=== PATIENT | female | born 1960 | race African-American/Black ===

== ENCOUNTER → 2016-09-02 | Outpatient (CLI) | payer BC | LOC: OD 15:01 | PROVIDERS: ATTEND Physician Assistant | DX: R05 Cough (principal) | CPT/HCPCS: 71020 ==

== ENCOUNTER 2018-03-12 13:34 | Emergency (ER) | payer MEDICARE, OTHER ==
[2018-03-12] MEDS ORDERED: DEXAMETHASONE 4 MG TABLET PO ONE (14:35)
[2018-03-12] MEDS ORDERED: KETOROLAC TROMETHAMINE 60 MG/2 ML SDV IM ONE (14:35)
--- NOTE | 2018-03-12 14:37 | ER Document Report ---
ED Neck/Back Problem - General Chief Complaint: Low Back Pain Stated Complaint: BACK AND KNEE PAIN Time Seen by Provider: 03/12/18 14:18 Mode of Arrival: Ambulatory Information source: Patient Notes: 57-year-old female was in the ED for complaint of low back pain since Monday. She states she also has left knee and thigh pain without any improvement. She states she has been taken ibuprofen that is not helping. She denies any injuries. She states that she has a history of back pain and has been using Aspercreme Biofreeze Tylenol and Aleve with no improvement. She is alert and oriented respirations regular and unlabored speaking in full sentences. Patient is able to ambulate with a even gait. She states she has had a history of a herniated disc in 1999. She states she has been to her primary care doctor up [place]. TRAVEL OUTSIDE OF THE [place] IN LAST 30 DAYS: No - HPI Patient complains to provider of: Pain, Lower back - Left hip and leg and thigh Onset: Other - Monday Onset: Chronic Timing: Still present Quality of pain: Burning, Sharp Severity: Severe Pain Level: 5 Recent injury: No Associated symptoms: Like prior neck/back pain, Radiation to leg - Buttocks hip and leg on the left, Lower back pain. denies: Incontinence, Motor loss, Numbness/tingling, Radiation to arm, Radiation to chest, Sensory loss, Unable to urinate, Upper back pain Exacerbated by: Movement of trunk, Sitting position Relieved by: Nothing Similar symptoms previously: Yes Recently seen / treated by doctor: No - Related Data Allergies/Adverse Reactions: Sulfa (Sulfonamide Antibiotics) Allergy (Verified 03/12/18 13:38) Past Medical History - General Information source: Patient - Social History Smoking Status: Current Every Day Smoker Cigarette use (# per day): Yes - 1/2 pack/day Chew tobacco use (# tins/day): No Smoking Education Provided: Yes - Woman Frequency of alcohol use: None Drug Abuse: None Lives with: Family - None Family History: Arthritis, CAD, DM, Hyperlipidemia, Hypertension Patient has suicidal ideation: No Patient has homicidal ideation: No - Past Medical History Cardiac Medical History: Reports: None Pulmonary Medical History: Reports: None EENT Medical History: Reports: Nose Neurological Medical History: Reports: None Endocrine Medical History: Reports: None Renal/ Medical History: Reports: None Malignancy Medical History: Reports: None GI Medical History: Reports: None Musculoskeletal Medical History: Reports Hx Musculoskeletal Trauma Skin Medical History: Reports None Psychiatric Medical History: Reports: None Traumatic Medical History: Reports: Hx Fractures - Foot Infectious Medical History: Reports: None Past Surgical History: Reports: Hx Section, Hx Nose Surgery - Sinus surgery, Hx Orthopedic Surgery - disk surgery, R foot surgery, Hx Tubal Ligation - Immunizations Immunizations up to date: Yes Review of Systems - Review of Systems Notes: REVIEW OF SYSTEMS: CONSTITUTIONAL : Denies fever, chills, or sweats. Denies recent illness. EENT: Denies eye, ear, throat, or mouth pain or symptoms. Denies nasal or sinus congestion or discharge. Denies throat, tongue, or mouth swelling or difficulty swallowing. CARDIOVASCULAR: Denies chest pain. Denies palpitations or racing or irregular heart beat. Denies ankle edema. RESPIRATORY: Denies cough, cold, or chest congestion. Denies shortness of breath, difficulty breathing, or wheezing. GASTROINTESTINAL: Denies abdominal pain or distention. Denies nausea, vomiting , or diarrhea. Denies blood in vomitus, stools, or per rectum. Denies black, tarry stools. Denies constipation. GENITOURINARY: Denies difficulty urinating, painful urination, burning, frequency, blood in urine, or discharge. FEMALE GENITOURINARY: Denies vaginal bleeding, heavy or abnormal periods, irregular periods. Denies vaginal discharge or odor. MUSCULOSKELETAL: Complains of low back pain since Monday with radiation of her pain across the left buttocks down the left thigh to the back of the left knee. Patient denies any loss of control of bowel or bladder, saddle anesthesia , loss of control of lower extremities or loss of sensation to lower extremities. SKIN: Denies rash, lesions or sores. HEMATOLOGIC : Denies easy bruising or bleeding. LYMPHATIC: Denies swollen, enlarged glands. NEUROLOGICAL: Denies confusion or altered mental status. Denies passing out or loss of consciousness. Denies dizziness or lightheadedness. Denies headache. Denies weakness or paralysis or loss of use of either side. Denies problems with gait or speech. Denies sensory loss, numbness, or tingling. Denies seizures. PHYSICAL EXAMINATION: GENERAL: Well-appearing, well-nourished and in no acute distress. HEAD: Atraumatic, normocephalic. EYES: Pupils equal round and reactive to light, extraocular movements intact, conjunctiva are normal. ENT: Nares patent, oropharynx clear without exudates. Moist mucous membranes. NECK: Normal range of motion, supple without lymphadenopathy LUNGS: Breath sounds clear to auscultation bilaterally and equal. No wheezes rales or rhonchi. HEART: Regular rate and rhythm without murmurs ABDOMEN: Soft, nontender, nondistended abdomen. No guarding, no rebound. No masses appreciated. Female : deferred Musculoskeletal: Tenderness to lumbar area with tenderness to the left buttocks thigh and knee. Patient has full range of motion. NEUROLOGICAL: Cranial nerves grossly intact. Normal speech, normal gait. Normal sensory, motor exams PSYCH: Normal mood, normal affect. SKIN: Warm, Dry, normal turgor, no rashes or lesions noted. PSYCHIATRIC: Denies anxiety or stress. Denies depression, suicidal ideation, or homicidal ideation. ALL OTHER SYSTEMS REVIEWED AND NEGATIVE. Dictation was performed using [employer] voice recognition software Physical Exam - Vital signs Vitals: Temp Pulse Resp BP Pulse Ox 98.0 F 83 18 143/79 H 99 03/12/18 13:52 03/12/18 13:52 03/12/18 13:52 03/12/18 13:52 03/12/18 13:52 Course - Vital Signs Vital signs: Temp Pulse Resp BP Pulse Ox 98.2 F 58 L 16 128/67 H 99 03/12/18 16:25 03/12/18 16:25 03/12/18 16:25 03/12/18 16:25 03/12/18 16:25 - Diagnostic Test Radiology reviewed: Image reviewed, Reports reviewed Discharge - Discharge Clinical Impression: Low back pain Qualifiers: Chronicity: acute Back pain laterality: left Sciatica presence: with sciatica Sciatica laterality: sciatica of left side Qualified Code(s): M54.42 - Lumbago with sciatica, left side Condition: Stable Disposition: HOME, SELF-CARE Additional Instructions: Chronic Back Pain Chronic back pain (pain persisting longer than three months) is a common problem. A medical evaluation can look for herniated disc, arthritis, osteoporosis, tumors, and infections. But at least half the time, there's no obvious treatable cause. Anxiety and depression tend to worsen back pain. Ibuprofen or other anti-inflammatory medicine can help. A heating pad, used for 15-20 minutes at a time, can ease pain. For this type of back pain, narcotic medicines should be avoided. Muscle relaxers are rarely helpful unless you're having spasms. Activity is important. Find an aerobic exercise program that your back can tolerate. Too much rest makes back pain worse. Specific back exercises are usually prescribed to strengthen the back and abdominal muscles. Often, a physical therapist can help. Avoid heavy lifting, working while bent over, or standing with both knees straight. Most back pain patients do better with a firm mattress. If new symptoms of a "herniated disc" (radiation of pain, numbness, or tingling down the back of the leg or weakness in the leg) occur, you should be re-examined. Toradol Injection You have been given an injection of ketorolac tromethamine (Toradol). This is an excellent, safe drug for pain control. It also has potent antiinflammatory action. You should have significant pain relief within about one hour. Toradol is not addicting and is non-sedating. It does not interfere with driving or work. Call or return if you develop itching, hives, shortness of breath, or rash. MUSCLE RELAXERS: Muscle relaxing medications are usually prescribed for acute muscle spasm or injury to the neck and back. They are often combined with antiinflammatory pain medication for increased relief. You may stop the muscle relaxer when the pain and stiffness have improved. Start the medication again if spasms recur. Muscle relaxers may cause drowsiness, especially with the first dose. Do not operate machinery or drive while under the effects of the medication. Most muscle relaxers last up to 24 hours. Do not combine the medication with alcohol. STEROID MEDICATION: You have been given a medicine of the cortisone/steroid class. This medication is used to control inflammation or allergy. It is usually only given for a short period of time, until the acute process subsides. There are usually no side effects from short-term use of cortisone-like medications. Some persons feel an increased sense of well-being and are not sleepy at bedtime. Long-term use of cortisone medications is best avoided, unless required for a severe condition. If your condition does not remit, or relapses after the course of corticosteroid medication, you should consult your physician. ICE PACKS: Apply ice packs frequently against the painful area. Many different schedules are recommended, such as "20 minutes on, 20 minutes off" or "one hour ice, two hours rest." If you need to work, you may need to go longer between ice treatments. You should plan to have the area ice packed AT LEAST one fourth of the time. The ice should be applied over the wrap, tape, or splint, or over a layer of cloth -- not directly against the skin. Some ice bags have a built-in cloth and can be put directly on the skin. WARM PACKS: After approximately two days, apply gentle heat (such as a heating pad or hot water bottle) for about 20 to 30 minutes about every two hours -- at least four times daily. Warmth and elevation will help you make a more rapid recovery , and will ease the pain considerably. Do not use HOT heat, and never apply heat for longer than 30 minutes. The continuous heat can invisibly damage skin and muscles -- even when no burn is seen on the surface. Damaged muscles can make you MORE sore. Stretching Exercises for the Back The physician has recommended that you begin stretching exercises for your back. These are often used even while the back is painful. However, you should notify the physician if the activities seem to increase your pain. PELVIC TILT: Lie flat on your back with knees bent. Tighten your stomach and buttock muscles so it flattens your lower back against the floor. Hold 10 seconds. Repeat 10 times, twice daily. KNEE RAISE: Lying on the back with knees bent, raise one knee to your chest, then the other. Hold both knees against the chest 10 seconds, then lower one knee at a time. Repeat 10 times, twice daily. PARTIAL TRUNK RAISE: Lie face down, arms at your sides. Keeping your waist on the floor, use your arms raise your chest up. Support yourself on your elbows for 30 seconds. Repeat twice daily, increasing the time to two minutes as you recover. FOLLOW-UP CARE: If you have been referred to a physician for follow-up care, call the physician s office for an appointment as you were instructed or within the next two days. If you experience worsening or a significant change in your symptoms, notify the physician immediately or return to the Emergency Department at any time for re-evaluation. Prescriptions: Cyclobenzaprine HCl [Flexeril 10 mg Tablet] 10 mg PO TIDP PRN #15 tab PRN Reason: Naproxen 500 mg PO BIDP PRN #14 tablet PRN Reason: Referrals: JUAN ALBERTO LEBLANC PA [PHYSICIAN [facility]] - Follow up as needed
--- NOTE | 2018-03-12 15:47 | RADIOLOGY REPORT (SQ) ---
EXAM DESCRIPTION: L SPINE WHOLE COMPLETED DATE/TIME: 03/12/2018 3:38 pm REASON FOR STUDY: low back pain COMPARISON: None. NUMBER OF VIEWS: Five views including obliques. TECHNIQUE: AP, lateral, oblique, and sacral radiographic images acquired of the lumbar spine. LIMITATIONS: None. FINDINGS: MINERALIZATION: Normal. SEGMENTATION: Normal. No transitional anatomy. ALIGNMENT: Normal. VERTEBRAE: Maintained height. No fracture or worrisome bone lesion. DISCS: Mild disc space loss of height at L4-5 and L5-S1 POSTERIOR ELEMENTS: Pedicles and facets are intact. No pars defect or posterior arch defects. Mild bilateral facet arthropathy at L4-5 and L5-S1. HARDWARE: None in the spine. PARASPINAL SOFT TISSUES: Calcified abdominal aorta without aneurysm PELVIS: Not in the field of view. Sclerosis right SI joint OTHER: No other significant finding. IMPRESSION: Lower lumbar degenerative disc and facet changes. No acute findings TECHNICAL DOCUMENTATION: JOB ID: [id number] [employer]- All Rights Reserved Reading location - IP/workstation name: [email or web address]
[2018-03-12 16:27] VITALS: BP 128/67
== END 2018-03-12 16:42 | disposition home or self-care (01) ==
LOC: ER 13:34
DX: M54.42 Lumbago with sciatica, left side (principal); F17.210 Nicotine dependence, cigarettes, uncomplicated; Z88.2 Allergy status to sulfonamides
CPT/HCPCS: 99283; 96372; 72110; A9270; J1885

== ENCOUNTER 2019-06-05 12:31 | Inpatient (IN) | payer OTHER, MEDICARE ==
[2019-06-05] MEDS ORDERED: NORMAL SALINE 1000 ML 1,000 ML IV ONE ×2 (13:20→15:20)
--- NOTE | 2019-06-05 13:23 | ER Document Report ---
ED Medical Screen (RME) - General Chief Complaint: Shortness Of Breath Stated Complaint: SHORTNESS OF BREATH Time Seen by Provider: 06/05/19 13:12 Notes: 59 year old female who presents with shortness of breath. She has been short of breath for the past 4 days. Patient admits to having fevers. She admits to having a cough. Patient denies any history of CHF or atrial fibrillation. Exam: Coarse breath sounds noted throughout. Tachycardic with a heart rate of 135. I have greeted and performed a rapid initial assessment of this patient. A comprehensive ED assessment and evaluation of the patient, analysis of test results and completion of medical decision making process will be conducted by an additional ED providers. TRAVEL OUTSIDE OF THE [place] IN LAST 30 DAYS: No - Related Data Allergies/Adverse Reactions: Sulfa (Sulfonamide Antibiotics) Allergy (Verified 06/05/19 13:14) iv dye Allergy (Uncoded 06/05/19 13:14) Past Medical History - Social History Frequency of alcohol use: None Drug Abuse: None Renal/ Medical History: Denies: Hx Peritoneal Dialysis Musculoskeltal Medical History: Reports Hx Musculoskeletal Trauma Traumatic Medical History: Reports: Hx Fractures - Foot Past Surgical History: Reports: Hx Section, Hx Nose Surgery - Sinus surgery, Hx Orthopedic Surgery - disk surgery, R foot surgery, Hx Tubal Ligation - Immunizations Immunizations up to date: Yes
[2019-06-05] MEDS ORDERED: LEVOFLOXACIN 750 MG/D5W RTU 750 MG/150 ML RTUPB IV ONE (13:24)
[2019-06-05 15:01] LABS: HEMATOCRIT 36.7 % (36.0-47.0); HEMOGLOBIN 12.7 g/dL (12.0-15.5); MEAN CORPUSCULAR HEMOGLOBIN 31.4 pg (27.0-33.4); MEAN CORPUSCULAR HGB CONC 34.5 g/dL (32.0-36.0); MEAN CORPUSCULAR VOLUME 91 fl (80-97); PLATELET COUNT 262 10^3/uL (150-450); RED BLOOD COUNT 4.03 10^6/uL (3.72-5.28); RED CELL DISTRIBUTION WIDTH 13.8 % (11.5-14.0); WHITE BLOOD COUNT 2.8 10^3/uL (4.0-10.5)
[2019-06-05 15:09] LABS: ALBUMIN 3.4 g/dL (3.5-5.0); ALKALINE PHOSPHATASE 147 U/L (38-126); ANION GAP 18 (5-19); ASPARTATE AMINO TRANSFERASE 340 U/L (14-36); BILIRUBIN,DIRECT 1.2 mg/dL (0.0-0.4); BILIRUBIN,TOTAL 1.6 mg/dL (0.2-1.3); BLOOD UREA NITROGEN 77 mg/dL (7-20); CALCIUM 9.2 mg/dL (8.4-10.2); CARBON DIOXIDE 23 mmol/L (22-30); CHLORIDE 99 mmol/L (98-107); GLUCOSE 191 mg/dL (75-110); TOTAL PROTEIN 7.1 g/dL (6.3-8.2)
[2019-06-05 15:42] LABS: ABSOLUTE LYMPHOCYTES# (MANUAL) 0.4 10^3/uL (0.5-4.7); ABSOLUTE MONOCYTES # (MANUAL) 0.2 10^3/uL (0.1-1.4); BAND NEUTROPHILS % (MANUAL) 1 % (3-5); BASOPHILS % (MANUAL) 0 % (0-2); EOSINOPHILS % (MANUAL) 0 % (0-6); LYMPHOCYTES % (MANUAL) 13 % (13-45); MONOCYTES % (MANUAL) 7 % (3-13); NUCLEATED RED BLOOD CELLS 1 /100 WBC (0); SEGMENTED NEUTROPHILS % (MAN) 79 % (42-78); TOTAL CELLS COUNTED 100
[2019-06-05 15:43] LABS: PLATELET COMMENT ADEQUATE; PLATELET LARGE PRESENT
--- NOTE | 2019-06-05 15:57 | RADIOLOGY REPORT (SQ) ---
EXAM DESCRIPTION: CHEST SINGLE VIEW COMPLETED DATE/TIME: 06/05/2019 3:47 pm REASON FOR STUDY: sobr COMPARISON: 09/02/2016 EXAM PARAMETERS: NUMBER OF VIEWS: One view. TECHNIQUE: Single frontal radiographic view of the chest acquired. RADIATION DOSE: NA LIMITATIONS: None. FINDINGS: LUNGS AND PLEURA: There complete opacification of the right hemithorax. No mediastinal sh ift. This probably represents combination of effusion and lung collapse. Left lung ro clear. MEDIASTINUM AND HILAR STRUCTURES: No masses. Contour normal. HEART AND VASCULAR STRUCTURES: Heart normal in size. Normal vasculature. BONES: No acute findings. HARDWARE: None in the chest. OTHER: No other significant finding. IMPRESSION: Near-complete whiteout of the right hemithorax as described. TECHNICAL DOCUMENTATION: JOB ID: [id number] 2010 [employer]- All Rights Reserved Reading location - IP/workstation name: [email or web address]
[2019-06-05] MEDS ORDERED: PIPERACILLIN/TAZOBACTAM 3.375 GM VIAL IV ONE (16:04)
[2019-06-05] MEDS ORDERED: VANCOMYCIN HCL INJ 1000 MG VIAL IV ONE (16:05)
--- NOTE | 2019-06-05 16:15 | RADIOLOGY REPORT (SQ) ---
EXAM DESCRIPTION: CT CHEST WITHOUT COMPLETED DATE/TIME: 06/05/2019 4:04 pm REASON FOR STUDY: Shortness of breath COMPARISON: None. TECHNIQUE: CT scan performed of the chest without intravenous contrast. Images reviewed with lung, soft tissue and bone windows. Reconstructed coronal and sagittal MPR images reviewed. All images st ored on PACS. All CT scanners at this facility use dose modulation, iterative reconstruction, and/or weight based d osing when appropriate to reduce radiation dose to as low as reasonably achievable (ALARA). [facility]: Dose Right [facility]: CareDose [facility]: Dose Right [facility]: Teradose 4D [facility]: [employer] RADIATION DOSE: CT Rad equipment meets quality standard of care and radiation dose reduction techniq ues were employed. CTDIvol: 15.0 mGy. DLP: 1002 mGy-cm. mGy. LIMITATIONS: Respiratory motion. FINDINGS: LUNGS AND PLEURA: Moderate right-sided pleural effusion. Dense consolidation recommend br onchoscopy for further evaluation. Changes may be secondary to mucous plug or mass. The left lung f ield is clear. Study is limited secondary respiratory motion. HILAR AND MEDIASTINAL STRUCTURES: No identified masses or abnormal nodes. No obvious aneurysm. HEART AND VASCULAR STRUCTURES: No aneurysm. No pericardial effusion. UPPER ABDOMEN: No significant findings. Limited exam. THYROID AND OTHER SOFT TISSUES: No masses. No adenopathy. BONES: No significant finding. HARDWARE: None in the chest. OTHER: No other significant findings. IMPRESSION: Consolidated right lung with moderate right-sided pleural effusion. Recommend bronchosc opy for further evaluation. Central obstructing mass in her mucous plug cannot be excluded. TECHNICAL DOCUMENTATION: JOB ID: [id number] Quality ID # [id number]: Final reports with documentation of one or more dose reduction techniques (e.g., Au tomated exposure control, adjustment of the mA and/or kV according to patient size, use of iterative reconstruction technique) 2010 [employer]- All Rights Reserved Reading location - IP/workstation name: [email or web address]
--- NOTE | 2019-06-05 16:17 | RADIOLOGY REPORT (SQ) ---
EXAM DESCRIPTION: CT ABD/PELVIS NO ORAL OR IV COMPLETED DATE/TIME: 06/05/2019 4:04 pm REASON FOR STUDY: abd pain/elevatedLFTs/elevated lactic acid COMPARISON: None. TECHNIQUE: CT scan of the abdomen and pelvis performed without intravenous or oral contrast. Images reviewed with lung, soft tissue, and bone windows. Reconstructed coronal and sagittal MPR images revi ewed. All images stored on PACS. All CT scanners at this facility use dose modulation, iterative reconstruction, and/or weight based d osing when appropriate to reduce radiation dose to as low as reasonably achievable (ALARA). [facility]: Dose Right [facility]: CareDose [facility]: Dose Right [facility]: Teradose 4D [facility]: [employer] RADIATION DOSE: mGy. LIMITATIONS: Respiratory motion. FINDINGS: LOWER CHEST: Please refer to the chest CT for discussion of lung findings. NON-CONTRASTED LIVER, SPLEEN, ADRENALS: Evaluation limited by lack of IV contrast. No identified sign ificant masses. PANCREAS: No masses. No peripancreatic inflammatory changes. GALLBLADDER: No identified stones by CT criteria. No inflammatory changes to suggest cholecystitis. RIGHT KIDNEY AND URETER: No suspicious masses. Assessment limited by lack of IV contrast. No signif icant calcifications. No hydronephrosis or hydroureter. LEFT KIDNEY AND URETER: No suspicious masses. Assessment limited by lack of IV contrast. No signifi cant calcifications. No hydronephrosis or hydroureter. AORTA AND RETROPERITONEUM: No aneurysm. No retroperitoneal masses or adenopathy. BOWEL AND PERITONEAL CAVITY: No obvious masses or inflammatory changes. No free fluid. APPENDIX: Normal. PELVIS, BLADDER, AND ABDOMINAL WALL:No abnormal masses. No free fluid. Bladder normal. BONES: No significant findings. OTHER: No other significant finding. IMPRESSION: Limited exam due to respiratory motion. No acute findings in the abdomen or pelvis. COMMENT: Quality ID # [id number]: Final reports with documentation of one or more dose reduction techniques (e.g., Automated exposure control, adjustment of the mA and/or kV according to patient size, use of iterative reconstruction technique) TECHNICAL DOCUMENTATION: JOB ID: [id number] 2010 [employer]- All Rights Reserved Reading location - IP/workstation name: [email or web address]
[2019-06-05] MEDS ORDERED: ETOMIDATE INJ/PF 20 MG/10 ML SDV IV ONE ×2 (16:21→17:00)
[2019-06-05] MEDS ORDERED: FENTANYL CITRATE INJ/PF 100 MCG/2 ML AMPUL ONE (16:22)
[2019-06-05] MEDS ORDERED: RINGERS SOLUTION,LACTATED 1,000 ML IV PRN (16:22)
[2019-06-05] MEDS ORDERED: PROPOFOL INJ 200 MG/20 ML VIAL IV ONE (16:28)
[2019-06-05] MEDS ORDERED: PROPOFOL 1,000 MG/100 ML INFUS..BTL IV PRN (16:41)
[2019-06-05] MEDS ORDERED: FENTANYL CITRATE INJ/PF 100 MCG/2 ML AMPUL IV ONE (17:00)
[2019-06-05] MEDS ORDERED: ROCURONIUM BROMIDE INJ 50 MG/5 ML VIAL IV ONE ×2 (17:00→18:42)
--- NOTE | 2019-06-05 17:03 | ER Document Report ---
Entered by NAILA IBANEZ SCRIBE 06/05/19 1517 Acting as scribe for:ALVERTO MARK MD ED General - General Chief Complaint: Shortness Of Breath Stated Complaint: SHORTNESS OF BREATH Time Seen by Provider: 06/05/19 13:12 Information source: Patient Notes: 59-year-old female presents to the emergency department complaining of shortness of breath and not "feeling well" for 4 days. Patient states that she is "just not feeling good". Patient complains of chills, cough, sputum, poor appetite and "hurting all over". Patient denies diarrhea. Patient reports that she had her last bowel movement yesterday. TRAVEL OUTSIDE OF THE [place] IN LAST 30 DAYS: No - Related Data Allergies/Adverse Reactions: Sulfa (Sulfonamide Antibiotics) Allergy (Verified 06/05/19 13:14) iv dye Allergy (Uncoded 06/05/19 13:14) Past Medical History - General Information source: Patient - Social History Smoking Status: Former Smoker Cigarette use (# per day): No Chew tobacco use (# tins/day): No Frequency of alcohol use: None Drug Abuse: None Family History: Arthritis, CAD, DM, Hyperlipidemia, Hypertension Patient has suicidal ideation: No Patient has homicidal ideation: No Pulmonary Medical History: Reports: Other - Chronic sinusitis Musculoskeletal Medical History: Reports Hx Musculoskeletal Trauma Traumatic Medical History: Reports: Hx Fractures - Foot Past Surgical History: Reports: Hx Section, Hx Nose Surgery - Sinus surgery, Hx Orthopedic Surgery - disk surgery, R foot surgery, Hx Tubal Ligation - Immunizations Immunizations up to date: Yes Review of Systems - Review of Systems Constitutional: See HPI, Chills, Malaise, Weakness EENT: No symptoms reported Cardiovascular: No symptoms reported Respiratory: See HPI, Cough, Short of breath, Sputum Gastrointestinal: See HPI. denies: Diarrhea Genitourinary: No symptoms reported Female Genitourinary: No symptoms reported Musculoskeletal: No symptoms reported Skin: No symptoms reported Hematologic/Lymphatic: No symptoms reported Neurological/Psychological: No symptoms reported -: Yes All other systems reviewed and negative Physical Exam - Vital signs Vitals: Temp Pulse Resp BP Pulse Ox 98.2 F 135 H 28 H 109/67 95 06/05/19 13:21 06/05/19 13:21 06/05/19 13:21 06/05/19 13:21 06/05/19 13:21 - Notes Notes: Physical Exam: General: Alert, appears moderately ill. HEENT: Normocephalic. Atraumatic. PERRL. Extraocular movements intact. Oropharynx clear. Poor dentition. Neck: Supple. Non-tender. Respiratory: Moderate respiratory distress. Clear and equal breath sounds bilaterally. Diminished in bases right greater than left. Cardiovascular: Tachycardia. Rate 145. Abdominal: Normal Inspection. Non-tender. No distension. Normal Bowel Sounds. Back: No gross abnormalities. Extremities: Moves all four extremities. Upper extremities: Normal inspection. Normal ROM. Lower extremities: Normal inspection. No edema. Normal ROM. Neurological: Normal cognition. AAOx4. Normal speech. Psychological: Normal affect. Normal Mood. Skin: Warm. Dry. Normal color. Course - Vital Signs Vital signs: Temp Pulse Resp BP Pulse Ox 98.2 F 135 H 29 H 109/67 90 L 06/05/19 13:21 06/05/19 13:21 06/05/19 15:06 06/05/19 13:21 06/05/19 15:09 - Laboratory Result Diagrams: 06/05/19 14:23 06/05/19 14:23 Laboratory results interpreted by me: 06/05/19 06/05/19 06/05/19 14:23 14:23 14:23 WBC 2.8 L Seg Neuts % (Manual) 79 H Band Neutrophils % 1 L Abs Lymphs (Manual) 0.4 L BUN 77 H Creatinine 2.89 H Est GFR ( Amer) 20 L Est GFR (MDRD) Non-Af 17 L Glucose 191 H Lactic Acid 4.2 H Total Bilirubin 1.6 H Direct Bilirubin 1.2 H AST 340 H ALT 134 H Alkaline Phosphatase 147 H NT-Pro-B Natriuret Pep Albumin 3.4 L 06/05/19 14:23 WBC Seg Neuts % (Manual) Band Neutrophils % Abs Lymphs (Manual) BUN Creatinine Est GFR ( Amer) Est GFR (MDRD) Non-Af Glucose Lactic Acid Total Bilirubin Direct Bilirubin AST ALT Alkaline Phosphatase NT-Pro-B Natriuret Pep 326 H Albumin - Diagnostic Test Radiology reviewed: Image reviewed, Reports reviewed Radiology results interpreted by me: 06/05/19 16:55 Plain film 1 view chest x-ray shows near white out complete of the right lung. 06/05/19 16:56 CT of chest shows pleural effusion and consolidated infiltrate in the right lung near complete collapse of right lung CT abdomen and pelvis no acute process noted per radiology. - EKG Interpretation by Me Additional EKG results interpreted by me: 06/05/19 16:56 Twelve-lead EKG done 06/05/2019 at 1403 shows sinus tachycardia with a rate of 139 left ventricular hypertrophy. No acute ST-T wave changes. Critical Care Note - Critical Care Note Total time excluding time spent on procedures (mins): 49 - Respiratory distress, hypoxia, sinus tachycardia, dehydration, sepsis. During hemodynamics IV antibiotics IV fluids monitoring heart rate and respiratory rate and hypoxia Discharge - Discharge Clinical Impression: Pleural effusion, right, Sepsis, Hypoxia, Renal failure (ARF), acute on chronic, Leukopenia, Respiratory distress Condition: Critical Disposition: ADMITTED INPATIENT Admitting Provider: Libby (Master Brewer) Unit Admitted: ICU I personally performed the services described in the documentation, reviewed and edited the documentation which was dictated to the scribe in my presence, and it accurately records my words and actions.
[2019-06-05] MEDS ORDERED: MIDAZOLAM 2 MG/2 ML INJ ONE (17:09)
[2019-06-05] MEDS ORDERED: PHARMACY COMMUNICATION ORDER MC NR (17:15)
--- NOTE | 2019-06-05 17:19 | RADIOLOGY REPORT (SQ) ---
EXAM DESCRIPTION: CHEST SINGLE VIEW COMPLETED DATE/TIME: 06/05/2019 5:10 pm REASON FOR STUDY: tube placement COMPARISON: Earlier the same day. EXAM PARAMETERS: NUMBER OF VIEWS: One view. TECHNIQUE: Single frontal radiographic view of the chest acquired. RADIATION DOSE: NA LIMITATIONS: None. FINDINGS: LUNGS AND PLEURA: Persistent near complete opacification of the right hemithorax. Endotra cheal tube is been placed. Tip lies just above the diana. Tip of the NG tube is not seen but is be low the GE junction. Left lung field remains clear. MEDIASTINUM AND HILAR STRUCTURES: No masses. Contour normal. HEART AND VASCULAR STRUCTURES: Heart normal in size. Normal vasculature. BONES: No acute findings. HARDWARE: None in the chest. OTHER: No other significant finding. IMPRESSION: 1. Stable near complete opacification of the right hemithorax. 2. Endotracheal tube and NG tube have been placed and are in satisfactory position. TECHNICAL DOCUMENTATION: JOB ID: [id number] 2010 [employer]- All Rights Reserved Reading location - IP/workstation name: [email or web address]
[2019-06-05] MEDS ORDERED: MIDAZOLAM 2 MG/2 ML INJ IV ONE (17:30)
--- NOTE | 2019-06-05 17:40 | CRITICAL CARE ADMISSION REPORT ---
HPI Date:: 06/05/19 Time:: 17:10 Reason for ICU Reason:: Acute hypoxic respiratory with pneumonia and empyema HPI: 59-year-old white female with a history of type 2 diabetes insulin requiring hypertension who presented with shortness of breath. She states that her sympt oms have been ongoing for approximately 3 to 4 days. She has significant shortness of breath and so her statements are somewhat limited by her respiratory status. She denies any fever but has chest discomfort with a deep breath. The right more than the left. She has not been hypotensive in the e mergency room however in the ensuing time she developed hypotension after she required intubation for worsening shortness of breath. She denies flulike symptoms. Had a productive cough. She denies any muscle aches. She does feel extremely weak lased. She has not been able to eat or drink much secondary to the shortness of breath and illness. History obtained from:: Patient - Diagnosis/Plan (1) Acute respiratory failure with hypoxia Is this a current diagnosis for this admission?: Yes (2) Community acquired bacterial pneumonia Is this a current diagnosis for this admission?: Yes Plan: Complicated (3) Sepsis with acute renal failure and septic shock Qualifiers: Sepsis type: sepsis due to unspecified organism Is this a current diagnosis for this admission?: Yes (4) Acute renal failure Qualifiers: Acute renal failure type: with acute tubular necrosis Qualified Code(s): N17.0 - Acute kidney failure with tubular necrosis Is this a current diagnosis for this admission?: Yes (5) Dehydration Is this a current diagnosis for this admission?: Yes (6) Leukopenia Qualifiers: Leukopenia type: unspecified Qualified Code(s): D72.819 - Decreased white blood cell count, unspecified Is this a current diagnosis for this admission?: Yes - . Plan Summary: Patient to be intubated in the emergency room secondary to impending respiratory failure. CT scan shows significant pneumonia and effusion which is concerning for empyema given its loculated nature. She does have sepsis with shock and lactic acid is elevated related to this. She was extremely dry on the intubation in the emergency room especially her mucous membranes. She will obviously need more IV fluids and supplementation. She had low normal blood pressure in the emergency room after intubation and fluids were given as well as albumin. We will transfer to ICU place chest tube. Patient has an autistic son and her cousin is caring for. Her next of kin is her brother whose phone number is [phone] his name is questionably Kami Have sent multiple cultures. She is also leukopenic we will check an HIV, influenza. Patient did not have a flu shot secondary to the fact that she states she gets the flu from the shot. Past Medical History Cardiac Medical History: Reports: Hypertension Denies: Myocardial Infarction Pulmonary Medical History: Reports: None, Other - Chronic sinusitis EENT Medical History: Reports: None Neurological Medical History: Reports: None Endocrine Medical History: Reports: Diabetes Mellitus Type 2 Malignancy Medical History: Reports: None GI Medical History: Reports: None Musculoskeltal Medical History: Reports: Arthritis Skin Medical History: Reports: None Psychiatric Medical History: Reports: None Traumatic Medical History: Reports: None Hematology: Reports: None Infectious Medical History: Reports: None Past Surgical History Past Surgical History: Reports: Section, Orthopedic Surgery - disk s urgery, R foot surgery, Tubal Ligation Social/Family History - Social History Lives with: Family Smoking Status: Former Smoker Last Time Smoked: 2017 Frequency of Alcohol Use: None Hx Recreational Drug Use: No Hx Prescription Drug Abuse: No - Family History Family History: CVA, DM, Other - crohn's - Medication/Allergies Home Medications: Alprazolam [Xanax] 1 mg PO BIDP PRN 06/05/19 Clonidine HCl 0.6 mg PO QHS 06/05/19 Glipizide [Glocotrol 10 Mg Tablet] 20 mg PO BID 06/05/19 Insulin Aspart [Novolog Flexpen] 35 unit SUBCUT AC 06/05/19 Insulin Detemir [Levemir Insulin 100 units/mL Insulin Pen] 30 unit SUBCUT QHS 06/05/19 Olmesartan/Hydrochlorothiazide [Olmesartan-Hctz 40-12.5 mg Tab] 1 tab PO DAILY 06/05/19 Oxycodone HCl/Acetaminophen [Percocet 10-325 Mg Tablet] 1 tab PO BID 06/05/19 Rosuvastatin Calcium [Crestor] 20 mg PO DAILY 06/05/19 Sitagliptin Phosphate [Januvia 50 mg Tablet] 100 mg PO DAILY 06/05/19 Allergies/Adverse Reactions: Sulfa (Sulfonamide Antibiotics) Allergy (Verified 06/05/19 13:14) iv dye Allergy (Uncoded 06/05/19 13:14) Review of Systems Constitutional: PRESENT: as per HPI, anorexia, weakness. ABSENT: chills, fever(s), night sweats Eyes: PRESENT: as per HPI Cardiovascular: PRESENT: chest pain, dyspnea on exertion. ABSENT: edema, palpitations Respiratory: PRESENT: cough, dyspnea, sputum. ABSENT: hemoptysis Gastrointestinal: ABSENT: abdominal pain, coffee ground emesis, diarrhea Genitourinary: ABSENT: difficulty urinating Musculoskeletal: PRESENT: muscle weakness Integumentary: ABSENT: lesions Neurological: PRESENT: weakness Endocrine: PRESENT: as per HPI Hematologic/Lymphatic: ABSENT: easy bleeding Physical Exam Vital Signs: Temp Pulse Resp BP Pulse Ox 98.2 F 135 H 29 H 109/67 90 L 06/05/19 13:21 06/05/19 13:21 06/05/19 15:06 06/05/19 13:21 06/05/19 15:09 Intake & Output 06/04/19 06/05/19 06/06/19 06:59 06:59 06:59 Weight 74.389 kg Weight/Height Weight 74.389 kg Height 5 ft General appearance: PRESENT: obese. ABSENT: no acute distress Exam: 59-year-old black female appears critically ill but not toxic, lethargic but awake enough to give some of history. Head exam: PRESENT: atraumatic, normocephalic Eye exam: PRESENT: conjunctival injection, conjunctiva pink, EOMI, PERRLA. ABSENT: nystagmus, scleral icterus Ear exam: PRESENT: normal external ear exam Mouth exam: PRESENT: dry mucosa, neck supple, tongue midline Teeth exam: PRESENT: edentulous - upper alveolar ridge, poor dentation - 3-4 residual fragmented teeth lower alveolar ridge Throat exam: ABSENT: post pharyngeal erythema, tonsillar erythema, tonsillar exudate, tonsillogmegaly Neck exam: PRESENT: full ROM. ABSENT: carotid bruit, JVD, lymphadenopathy, meningismus Respiratory exam: PRESENT: accessory muscle use, decreased breath sounds - On right, rhonchi, tachypnea. ABSENT: unlabored Cardiovascular exam: PRESENT: RRR, +S1, +S2, tachycardia Pulses: ABSENT: normal dorsalis pedis pul Vascular exam: ABSENT: normal capillary refill, pallor GI/Abdominal exam: PRESENT: normal bowel sounds, soft. ABSENT: ascites, distended, guarding, mass, organolmegaly, rebound, tenderness Rectal exam: PRESENT: deferred Extremities exam: ABSENT: pedal edema Musculoskeletal exam: PRESENT: normal inspection. ABSENT: deformity, disloca tion Neurological exam: PRESENT: awake, oriented to person, oriented to place, oriented to time, oriented to situation, CN II-XII grossly intact. ABSENT: motor sensory deficit Psychiatric exam: PRESENT: appropriate affect, normal mood Focused psych exam: PRESENT: restlessness. ABSENT: pressured speech, psychomotor agitation Skin exam: PRESENT: dry, normal color, other - cool to touch.. ABSENT: erythema, mottled Tubes/Lines: PRESENT: Other - IV - 2 20 guage Laboratory/Radiographs Laboratory Results: 06/05/19 14:23 06/05/19 14:23 06/05/19 06/05/19 06/05/19 14:23 14:23 14:23 WBC 2.8 L RBC 4.03 Hgb 12.7 Hct 36.7 MCV 91 MCH 31.4 MCHC 34.5 RDW 13.8 Plt Count 262 Seg Neutrophils % Not Reportable Sodium 139.9 Potassium 4.0 Chloride 99 Carbon Dioxide 23 Anion Gap 18 BUN 77 H Creatinine 2.89 H Est GFR ( Amer) 20 L Glucose 191 H Lactic Acid 4.2 H Calcium 9.2 Total Bilirubin 1.6 H AST 340 H Alkaline Phosphatase 147 H Total Protein 7.1 Albumin 3.4 L Lipase 06/05/19 14:23 WBC RBC Hgb Hct MCV MCH MCHC RDW Plt Count Seg Neutrophils % Sodium Potassium Chloride Carbon Dioxide Anion Gap BUN Creatinine Est GFR ( Amer) Glucose Lactic Acid Calcium Total Bilirubin AST Alkaline Phosphatase Total Protein Albumin Lipase 63.3 06/05/19 14:23 NT-Pro-B Natriuret Pep 326 H Impressions: Chest X-Ray 06/05/19 15:18 IMPRESSION: Near-complete whiteout of the right hemithorax as described. Chest CT 06/05/19 15:24 IMPRESSION: Consolidated right lung with moderate right-sided pleural effusion. Recommend bronchoscopy for further evaluation. Central obstructing mass in her mucous plug cannot be excluded. Abdomen/Pelvis CT 06/05/19 15:27 IMPRESSION: Limited exam due to respiratory motion. No acute findings in the abdomen or pelvis. All labs, radiographs, diagnostic studies and EKGs were personally reviewed: Yes In addition, reports of radiographic and diagnostic studies were read: Yes Critical Time Critical Time (minutes): 90 -: The care of a critically ill patient is dynamic. This note represents a static moment in the admission process. Orders and treatments may be given simultaneously and urgently, and time is not medical detail representative of the treatment process. This patient requires Critical Care secondary to life threatening organ or limb dysfunction. Without Critical Care services, the patient is at risk for increased mortality and morbidity.
[2019-06-05] MEDS ORDERED: ALBUMIN HUMAN 500 ML IV ONE (18:00)
[2019-06-05] MEDS ORDERED: LINEZOLID 600 MG/300 ML RTUPB IV SCH (18:00)
[2019-06-05 18:56] LABS: AMORPHOUS SEDIMENT,URINE TRACE /HPF; APPEARANCE,URINE TURBID; BILIRUBIN,URINE NEGATIVE (NEGATIVE); COLOR,URINE AMBER; GLUCOSE, URINE 50 mg/dL (NEGATIVE); KETONES,URINE NEGATIVE (NEGATIVE); LEUKOCYTE ESTERASE,URINE NEGATIVE (NEGATIVE); NITRITE,URINE NEGATIVE (NEGATIVE); PROTEIN,URINE >=500 mg/dL (NEGATIVE); URINE SPECIFIC GRAVITY 1.022; UROBILINOGEN,URINE NEGATIVE mg/dL (<2.0)
[2019-06-05 19:04] VITALS: BP 184/89
[2019-06-05 19:14] LABS: ARTERIAL BLOOD BASE EXCESS -7.2 mmol/L; ARTERIAL BLOOD H2CO3 1.33 mmol/L (1.05-1.35); ARTERIAL BLOOD HCO3 19.6 mmol/L (20-24); ARTERIAL BLOOD O2 SATURATION 96.1 % (94-98); ARTERIAL BLOOD PCO2 44.3 mmHg (35-45); ARTERIAL BLOOD PH 7.26 (7.35-7.45); ARTERIAL BLOOD PO2 93.8 mmHg (80-100); ARTERIAL BLOOD TOTAL CO2 20.9 mmol/L (21-25)
[2019-06-05 19:21] LABS: ARTERIAL BLOOD FIO2 65%
[2019-06-05] MEDS ORDERED: CEFEPIME 1 GM/D5W RTU 1 GM/50 ML RTUPB IV SCH (20:00)
[2019-06-05] MEDS ORDERED: HYDROMORPHONE HCL INJ/PF 2 MG/ML AMPULE ONE (20:01)
--- NOTE | 2019-06-05 20:05 | RADIOLOGY REPORT (SQ) ---
EXAM DESCRIPTION: U/S ABDOMEN LTD W/DOPPLER COMPLETED DATE/TIME: 06/05/2019 7:47 pm REASON FOR STUDY: elevated alkaline phosphatase with sepsis COMPARISON: None. TECHNIQUE: Dynamic and static grayscale images acquired of the abdomen and recorded on PACS. Steveo brian selected color Doppler and spectral images recorded. LIMITATIONS: None. FINDINGS: PANCREAS: No masses. Visualized pancreatic duct normal caliber. LIVER: Hepatomegaly. Increased echogenicity. LIVER VASCULATURE: Normal directional flow of the main portal vein and hepatic veins. GALLBLADDER: No stones. No wall thickening. Small amount of sludge. ULTRASOUND-DETECTED PEREZ'S SIGN: Negative. INTRAHEPATIC DUCTS AND COMMON DUCT: CBD and intrahepatic ducts normal caliber. No filling defects. INFERIOR VENA CAVA: Not imaged. AORTA: Poorly seen. No aneurysm is present proximal aorta. RIGHT KIDNEY: Normal size, 12 cm. Normal echogenicity. No solid or suspicious masses. No hydronephro sis. No calcifications. PERITONEAL AND RIGHT PLEURAL SPACE: No ascites or effusions. OTHER: No other significant findings. IMPRESSION: Small amount of gallbladder sludge. Hepatomegaly. Hepatic steatosis. TECHNICAL DOCUMENTATION: JOB ID: [id number] 2010 [employer]- All Rights Reserved Reading location - IP/workstation name: [email or web address]
[2019-06-05 20:13] LABS: AMORPHOUS SEDIMENT,URINE TRACE /HPF; APPEARANCE,URINE TURBID; BILIRUBIN,URINE NEGATIVE (NEGATIVE); COLOR,URINE AMBER; GLUCOSE, URINE 50 mg/dL (NEGATIVE); KETONES,URINE NEGATIVE (NEGATIVE); LEUKOCYTE ESTERASE,URINE NEGATIVE (NEGATIVE); NITRITE,URINE NEGATIVE (NEGATIVE); PROTEIN,URINE 100 mg/dL (NEGATIVE); URINE SPECIFIC GRAVITY 1.025; UROBILINOGEN,URINE NEGATIVE mg/dL (<2.0)
[2019-06-05] MEDS ORDERED: ADENOSINE INJ/PF 6 MG/2 ML SDV IV ONE (20:26)
[2019-06-05] MEDS ORDERED: METOPROLOL TARTRATE PF/INJ 5 MG/5 ML SDV IV ONE ×2 (20:27→20:45)
[2019-06-05 20:30] LABS: URINE AMPHETAMINES SCREEN NEGATIVE; URINE BARBITURATES SCREEN NEGATIVE; URINE COCAINE SCREEN NEGATIVE; URINE MARIJUANA (THC) SCREEN NEGATIVE; URINE METHADONE SCREEN NEGATIVE; URINE PHENCYCLIDINE SCREEN NEGATIVE
[2019-06-05] MEDS ORDERED: HYDROMORPHONE HCL INJ/PF 2 MG/ML AMPULE IV ONE (20:30)
[2019-06-05 20:33] LABS: INTERNATIONAL RATION (INR) 1.23; PROTHROMBIN TIME 15.6 SEC (11.4-15.4)
[2019-06-05 20:33] LABS: URINE BENZODIAZEPINES SCREEN UNCONFIRMED POSITIVE
[2019-06-05 20:34] LABS: PARTIAL THROMBOPLASTIN TIME 33.7 SEC (23.5-35.8)
[2019-06-05 20:48] LABS: PHOSPHORUS 6.7 mg/dL (2.5-4.5)
[2019-06-05 20:59] LABS: CREATINE KINASE MB 0.56 ng/mL (<4.55)
[2019-06-05 21:00] LABS: TROPONIN I < 0.012 ng/mL
[2019-06-05 21:05] LABS: FREE T4 (FREE THYROXINE) 1.51 ng/dL (0.78-2.19)
[2019-06-05] MEDS ORDERED: DEXTROSE 5%-WATER 250 ML with NOREPINEPHRINE BITARTRATE 4 MG IV PRN ×2 (21:16)
[2019-06-05] MEDS ORDERED: DEXMEDETOMIDINE IN 0.9 % NACL 400 MCG/100 ML RTUPB IV PRN (21:17)
[2019-06-05 21:19] LABS: THYROID STIMULATING HORMONE 0.66 uIU/mL (0.47-4.68)
--- NOTE | 2019-06-05 21:25 | Progress Note ---
Provider Note Provider Note: Patient reevaluated in the ICU for tachycardia and hypertension. Notable tachycardia with blood pressure of 170/80. Rate of 1 61-1 65 and irregular. Ultrasound of the chest was done to rule out any pathology there was no pneumothorax. There is a consolidative effusion on the right She was given 5 mg of Lopressor IV which controlled her heart rate but at the cause of development of hypotension which is quite significant. An ultrasound probe was used for basic critical care echo which showed significant cardi omyopathy with an ejection fraction of approximately 10 to 15%. The left ventricle is dilated. There was regional wall abnormalities including the lateral and wall with apex. There was mild septal dyskinesis. There appeared to be a questionable mitral flail segment however adequate windows were difficult to obtain. We did not see any pericardial effusion. Previous echo reports were available to compare. Notably her EKG, which had shown mild ST segment depression had now developed a pseudonormalization with early ST segment elevation. This pseudonormalization from a previous ST depression is concerning for an acute lateral WA. Given the reduced ejection fraction with lateral wall changes on echo I felt it prudent to speak with cardiology. We do not have immediately available cardiology team so I placed a call to the cardiology program at [facility]. I discussed the case with the cardio vascular ICU physician and they are in agreement with our concerns. To that and they have accepted her for transfer and we will prepare the patient. We will place central line and arterial line and start on Levophed for any hypotension. Please see H&P and discharge summary. Additional critical care time 30 minutes
--- NOTE | 2019-06-05 21:31 | PDOC TRANSFER SUMMARY ---
General Admission Date/PCP: 06/05/19 17:09 - Transfer Diagnosis (1) Acute respiratory failure with hypoxia Is this a current diagnosis for this admission?: Yes (2) Community acquired bacterial pneumonia Is this a current diagnosis for this admission?: Yes (3) Sepsis with acute renal failure and septic shock Is this a current diagnosis for this admission?: Yes (4) Acute renal failure Is this a current diagnosis for this admission?: Yes (5) Dehydration Is this a current diagnosis for this admission?: Yes (6) Leukopenia Is this a current diagnosis for this admission?: Yes (7) Cardiomyopathy Is this a current diagnosis for this admission?: Yes (8) Lateral ST segment elevation Is this a current diagnosis for this admission?: Yes (9) Pleural effusion due to bacterial infection Is this a current diagnosis for this admission?: Yes - Transfer Medications Home Medications: Alprazolam [Xanax] 1 mg PO BIDP PRN 06/05/19 Clonidine HCl 0.6 mg PO QHS 06/05/19 Glipizide [Glocotrol 10 Mg Tablet] 20 mg PO BID 06/05/19 Insulin Aspart [Novolog Flexpen] 35 unit SUBCUT AC 06/05/19 Insulin Detemir [Levemir Insulin 100 units/mL Insulin Pen] 30 unit SUBCUT QHS 06/05/19 Olmesartan/Hydrochlorothiazide [Olmesartan-Hctz 40-12.5 mg Tab] 1 tab PO DAILY 06/05/19 Oxycodone HCl/Acetaminophen [Percocet 10-325 Mg Tablet] 1 tab PO BID 06/05/19 Rosuvastatin Calcium [Crestor] 20 mg PO DAILY 06/05/19 Sitagliptin Phosphate [Januvia 50 mg Tablet] 100 mg PO DAILY 06/05/19 Transfer Medications: Current Medications Famotidine (Pepcid 20 Mg Tablet) 20 mg NG Q12 STACIE Stop: 07/05/19 21:59 Heparin Sodium (Porcine) (Heparin Inj 5,000 Units/Ml 1 Ml Vial) 5,000 unit SUBCUT Q8 STACIE Stop: 07/05/19 21:59 Lactated Ringer's (Lactated Ringers 1000 Ml Iv Soln) 1,000 mls @ 150 mls/hr IV CONTINUOUS PRN PRN Reason: THIS MED IS NOT "PRN" Stop: 07/05/19 16:21 Cefepime HCl (Maxipime Rtu 1 Gm/D5w 50 Ml Premix Bag) 1 gm in 50 mls @ 100 mls/hr IV Q12@0800,2000 [facility] Stop: 06/12/19 19:59 Linezolid (Zyvox Rtu 600 Mg/300 Ml Premixed) 600 mg in 300 mls @ 300 mls/hr IV Q12A [facility] Stop: 06/12/19 17:59 Last Admin: 06/05/19 18:58 Dose: 300 mls/hr, 300 mls/hr Documented by: Norepinephrine Bitartrate 4 mg (/ Dextrose) 254 mls @ 0 mls/hr IV CONTINUOUS PRN; Protocol PRN Reason: THIS MED IS NOT "PRN" Stop: 07/05/19 21:15 Dexmedetomidine/Sodium Chloride (Precedex 400 Mcg/Ns 100 Ml Iv Premix) 400 mcg in 100 mls @ 0 mls/hr IV CONTINUOUS PRN; Protocol PRN Reason: THIS MED IS NOT "PRN" Stop: 07/05/19 21:16 Pharmacy Profile Note (Medication Communication Order) 1 each [facility] .NOTICE NR Stop: 07/05/19 17:14 Sodium Chloride (Saline Flush 2.5 Ml Monoject Prefil Syrin) 2.5 ml IV Q8 [facility] Stop: 07/05/19 21:59 - Allergies Allergies/Adverse Reactions: Sulfa (Sulfonamide Antibiotics) Allergy (Verified 06/05/19 13:14) iv dye Allergy (Uncoded 06/05/19 13:14) Hospital Course Hospital Course: 59-year-old white female seen by the critical care team in the emergency room for progressive and worsening respiratory failure culminating in the need for intubation for mechanical ventilation. She was found to have a significant consolidated pneumonia and consolidated and loculated pleural effusion concerning for empyema. She had transient hypotension in the emergency room which responded to fluids she was transferred to the ICU. Sometime around 830 or 9:00 she was noted to be in a rapid heart rate which appeared to be atrial fibrillation and or flutter. Pressure was elevated at the time with 170/[address] segment depression on admission in the lateral leads. Repeat showed pseudonormalization with an early ST segment elevation in those same lateral leads. Echocardiogram showed significant left ventricular dysfunction with an estimated ejection fraction of 10 to 15%. There was regional wall abnormalities with some dyskinesis of the septum. There appeared to be a questionable mitral valve flail segment however we could not obtain adequate pictures due to the patient's anatomy. Did not have elevated ventilator pressures and ultrasound of the lungs did not show any pneumothorax bilaterally. She was given Lopressor to control her heart rate however this contributed to hypotension although her heart rate was improved. Central line and arterial line were then placed and consideration for Levophed was ongoing based on her hypotension. Troponins were elevated but were not available at the time of this dictation. She was placed on broad-spectrum antibiotics immediately in the emergency room including linezolid because of the considerable consolidation. Even her findings we placed a call to [facility] who have accepted the patient in transfer to the cardiac ICU. Physical Exam Vital Signs: Temp Pulse Resp BP Pulse Ox 97.7 F 148 H 15 184/89 H 99 06/05/19 20:00 06/05/19 19:02 06/05/19 19:02 06/05/19 19:02 06/05/19 20:04 Intake & Output 06/04/19 06/05/19 06/06/19 06:59 06:59 06:59 Intake Total 2152 Output Total 100 Balance 2052 Weight 76 kg Exam: See H&P Results Laboratory Results: 06/05/19 14:23 06/05/19 14:23 06/05/19 06/05/19 06/05/19 14:23 14:23 14:23 WBC 2.8 L RBC 4.03 Hgb 12.7 Hct 36.7 MCV 91 MCH 31.4 MCHC 34.5 RDW 13.8 Plt Count 262 Seg Neutrophils % Not Reportable Carbonic Acid HCO3/H2CO3 Ratio ABG pH ABG pCO2 ABG pO2 ABG HCO3 ABG O2 Saturation ABG Base Excess FiO2 Sodium 139.9 Potassium 4.0 Chloride 99 Carbon Dioxide 23 Anion Gap 18 BUN 77 H Creatinine 2.89 H Est GFR ( Amer) 20 L Glucose 191 H Lactic Acid 4.2 H Calcium 9.2 Phosphorus Magnesium Total Bilirubin 1.6 H GGT AST 340 H Alkaline Phosphatase 147 H Total Protein 7.1 Albumin 3.4 L Triglycerides Lipase TSH Free T4 Urine Color Urine Appearance Urine pH Ur Specific [place] Urine Protein Urine Glucose (UA) Urine Ketones Urine Blood Urine Nitrite Ur Leukocyte Esterase Urine WBC (Auto) 06/05/19 06/05/19 06/05/19 14:23 16:32 18:52 WBC RBC Hgb Hct MCV MCH MCHC RDW Plt Count Seg Neutrophils % Carbonic Acid 1.33 HCO3/H2CO3 Ratio 14:1 ABG pH 7.26 L ABG pCO2 44.3 ABG pO2 93.8 ABG HCO3 19.6 L ABG O2 Saturation 96.1 ABG Base Excess -7.2 FiO2 65% Sodium Potassium Chloride Carbon Dioxide Anion Gap BUN Creatinine Est GFR ( Amer) Glucose Lactic Acid Calcium Phosphorus Magnesium Total Bilirubin GGT AST Alkaline Phosphatase Total Protein Albumin Triglycerides Lipase 63.3 TSH Free T4 Urine Color KESHIA Urine Appearance TURBID Urine pH 5.0 Ur Specific [place] 1.022 Urine Protein >=500 H Urine Glucose (UA) 50 H Urine Ketones NEGATIVE Urine Blood MODERATE H Urine Nitrite NEGATIVE Ur Leukocyte Esterase NEGATIVE Urine WBC (Auto) 2 06/05/19 06/05/19 06/05/19 18:58 20:12 20:12 WBC RBC Hgb Hct MCV MCH MCHC RDW Plt Count Seg Neutrophils % Carbonic Acid HCO3/H2CO3 Ratio ABG pH ABG pCO2 ABG pO2 ABG HCO3 ABG O2 Saturation ABG Base Excess FiO2 Sodium Potassium Chloride Carbon Dioxide Anion Gap BUN Creatinine Est GFR ( Amer) Glucose Lactic Acid 2.9 H Calcium Phosphorus Magnesium Total Bilirubin GGT AST Alkaline Phosphatase Total Protein Albumin Triglycerides Lipase TSH 0.66 Free T4 1.51 Urine Color KESHIA Urine Appearance TURBID Urine pH 5.0 Ur Specific [place] 1.025 Urine Protein 100 H Urine Glucose (UA) 50 H Urine Ketones NEGATIVE Urine Blood MODERATE H Urine Nitrite NEGATIVE Ur Leukocyte Esterase NEGATIVE Urine WBC (Auto) 2 06/05/19 20:12 WBC RBC Hgb Hct MCV MCH MCHC RDW Plt Count Seg Neutrophils % Carbonic Acid HCO3/H2CO3 Ratio ABG pH ABG pCO2 ABG pO2 ABG HCO3 ABG O2 Saturation ABG Base Excess FiO2 Sodium Potassium Chloride Carbon Dioxide Anion Gap BUN Creatinine Est GFR ( Amer) Glucose Lactic Acid Calcium Phosphorus 6.7 H Magnesium 2.2 Total Bilirubin GGT 59 AST Alkaline Phosphatase Total Protein Albumin Triglycerides 396 H Lipase TSH Free T4 Urine Color Urine Appearance Urine pH Ur Specific [place] Urine Protein Urine Glucose (UA) Urine Ketones Urine Blood Urine Nitrite Ur Leukocyte Esterase Urine WBC (Auto) 06/05/19 06/05/19 06/05/19 14:23 20:12 20:12 Creatine Kinase 76 CK-MB (CK-2) 0.56 Troponin I < 0.012 NT-Pro-B Natriuret Pep 326 H Impressions: Abdomen Ultrasound 06/05/19 00:00 IMPRESSION: Small amount of gallbladder sludge. Hepatomegaly. Hepatic steatosis. Chest X-Ray 06/05/19 15:18 IMPRESSION: Near-complete whiteout of the right hemithorax as described. Chest CT 06/05/19 15:24 IMPRESSION: Consolidated right lung with moderate right-sided pleural effusion. Recommend bronchoscopy for further evaluation. Central obstructing mass in her mucous plug cannot be excluded. Abdomen/Pelvis CT 06/05/19 15:27 IMPRESSION: Limited exam due to respiratory motion. No acute findings in the abdomen or pelvis. Plan Discharge Plan: Transfer Change sedation to Precedex Levophed for hypotension Hold heparin as per cardiology Continue antibiotics Central line arterial line Time Spent: Greater than 30 Minutes
[2019-06-05] MEDS ORDERED: FAMOTIDINE 20 MG TABLET NG SCH (22:00)
[2019-06-05] MEDS ORDERED: FAMOTIDINE 20 MG TABLET PO SCH (22:00)
[2019-06-05] MEDS ORDERED: HEPARIN SOD (PORCINE) 5,000 UNIT/ML 1 ML VIAL SUBCUT SCH (22:00)
[2019-06-05] MEDS ORDERED: NORMAL SALINE INJ/PF 0.9% 10 ML SDV IV PRN (22:19)
--- NOTE | 2019-06-05 22:37 | EKG REPORT ---
SEVERITY:- ABNORMAL ECG - ATRIAL FIBRILLATION : Confirmed by: Levi Ordaz 05-Jun-2019 22:35:44
--- NOTE | 2019-06-05 22:37 | EKG REPORT ---
SEVERITY:- ABNORMAL ECG - SINUS TACHYCARDIA LEFT VENTRICULAR HYPERTROPHY : Confirmed by: Levi Ordaz 05-Jun-2019 22:36:11
--- NOTE | 2019-06-05 22:51 | Operative Report ---
Bedside Procedure - History of Present Illness History of Present Illness: 59-year-old white female with a history of type 2 diabetes insulin requiring hypertension who presented with shortness of breath. She states that her symptoms have been ongoing for approximately 3 to 4 days. She has significant shortness of breath and so her statements are somewhat limited by her respiratory status. She denies any fever but has chest discomfort with a deep breath. The right more than the left. She has not been hypotensive in the emergency room however in the ensuing time she developed hypotension after she required intubation for worsening shortness of breath. She denies flulike symptoms. Had a productive cough. She denies any muscle aches. She does feel extremely weak lased. She has not been able to eat or drink much secondary to the shortness of breath and illness. Indication for Procedure: Cardiogenic shock Date: 06/05/19 Provider: GIL CAPELLAN - Central Line Right Internal jugular Time completed: 21:30 Consent obtained: Yes Central line pre-insertion: Sterile PPE donned, Chloraprep applied, Sterile drapes applied Central line size (Fr.): 7 Central line lumen type: Triple Anesthetic type: 1% Lidocaine mL's of anesthesia: 3 Ultrasound guided: Yes CM at insertion site: 18 Line secured with sutures: Yes Central line post-insertion: Blood return from lumens, Biopatch applied, Sutured, Sterile dressing applied, Position confirmed w/ CXR Number of attempts: 1 Complications: No Notes: 06/05/19 21:30 Procedure: central line Indication: cardiogenic shock Proceduralist: DAVEY Crooks Pre-procedure Dx: shock Post-procedure Dx: shock Anesthesia: 1% Lidocaine without epinephrine, 3 mL Complications: none Findings: adequately filled right internal jugular vein with proper placement of a right IJ central venous catheter; no pneumothorax on CXR. Details: Patient was placed in proper procedural position followed by prepping and draping in usual sterile fashion. Using ultrasound, the right internal jugular vein was identified and is free of thrombus from the angle of the right mandible down to the clavicle. A 20-gauge introducer needle attached to a syringe via negative pressure was visualized entering the right internal jugular vein via ultrasound with a return of blood in the syringe. The syringe was disconnected from the needle noting a slow dripping of blood from the needle. A guidewire was then advanced through the needle into the right internal jugular vein without difficulty and the needle was removed. Utilizing ultrasound, the wire was confirmed to be in the right internal jugular vein in 2 views. A small skin stab incision was made over the wire to prepare for dilation. Next, a dilator was passed over the wire double to dilate the subcutaneous tissue and was subsequently removed. A 7 Sami 20 cm catheter was then advanced over the wire into the right internal jugular vein and the guidewire was removed, again noting a slow dripping of blood from the distal lumen of the catheter. All lumens aspirated and flushed easily. A Biopatch was applied, the catheter was secured into place with 4 sutures at 18 cm at the skin, and a sterile transparent occlusive dressing was applied. Patient tolerated the procedure well with an EBL of 5 mL. CXR demonstrates the right IJ central venous catheter to be in the SVC without any evidence of pneumothorax. Procedure: arterial line Indication: cardiogenic shock Proceduralist: DAVEY Crooks Pre-procedure Dx: shock Post-procedure Dx: shock Anesthesia: 1% Lidocaine without epinephrine, 2 mL A left radial arterial line was also attempted once without successful cannulation due to difficulty advancing the catheter over the needle through the patient's tough skin/subcutaneous tissue despite there being obvious arterial blood coming from the needle. The flight EMS crew arrived for transport to [facility], therefore, manual pressure was applied with no signs of active bleeding or hematoma with no further attempt at access to prevent delay of transportation. No complications, 2 mL EBL.
--- NOTE | 2019-06-05 23:09 | RADIOLOGY REPORT (SQ) ---
EXAM DESCRIPTION: XR CHEST 1 VIEW COMPLETED DATE/TME: 06/05/2019 00:00 CLINICAL HISTORY: 59 years, Female, ALREADY PERFORMED for central line insertion COMPARISON: 06/05/2019 chest x-ray at 3:44 PM 5:03 PM NUMBER OF VIEWS: 1 TECHNIQUE: Portable chest LIMITATIONS: None. FINDINGS: Endotracheal tube, with the tip approximately 2.4 cm above the diana. Enteric tube, the tip is not seen and extends into the upper abdomen. Central venous catheter with the tip likely in the right atrium or cavoatrial junction. Extensive airspace opacities throughout the right hemithorax. No discrete pneumothorax.. IMPRESSION: Tubes/lines/catheters in place. Extensive airspace opacities throughout the right hemithorax copyright 2011 [employer]- All Rights Reserved
== END 2019-06-05 22:20 | disposition short-term general hospital (02) | DRG 871 ==
LOC: ER 12:31 → EH 17:09 → ICU 18:45
PROVIDERS: ADMIT Internal Medicine Critical Care Medicine; ATTEND Internal Medicine Critical Care Medicine
PROC: 0BH17EZ Insertion of Endotracheal Airway into Trachea, Via Natural or Artificial Opening (ICD-10-PCS; principal; 2019-06-05)
PROC: 5A1935Z Respiratory Ventilation, Less than 24 Consecutive Hours (ICD-10-PCS; 2019-06-05)
PROC: 02HV33Z Insertion of Infusion Device into Superior Vena Cava, Percutaneous Approach (ICD-10-PCS; 2019-06-05)
PROC: 03JYXZZ Inspection of Upper Artery, External Approach (ICD-10-PCS; 2019-06-05)
DX: A41.9 Sepsis, unspecified organism (principal); R65.21 Severe sepsis with septic shock; J96.01 Acute respiratory failure with hypoxia; J15.9 Unspecified bacterial pneumonia; J86.9 Pyothorax without fistula; N17.9 Acute kidney failure, unspecified; I42.9 Cardiomyopathy, unspecified; G24.9 Dystonia, unspecified; H18.9 Unspecified disorder of cornea; E11.9 Type 2 diabetes mellitus without complications; I10 Essential (primary) hypertension; E86.0 Dehydration; D72.819 Decreased white blood cell count, unspecified; R70.0 Elevated erythrocyte sedimentation rate; M19.90 Unspecified osteoarthritis, unspecified site; Z79.4 Long term (current) use of insulin; Z79.899 Other long term (current) drug therapy; Z79.84 Long term (current) use of oral hypoglycemic drugs; Z88.2 Allergy status to sulfonamides; Z91.041 Radiographic dye allergy status; Z87.891 Personal history of nicotine dependence; Z82.49 Family history of ischemic heart disease and other diseases of the circulatory system; Z82.3 Family history of stroke; Z83.3 Family history of diabetes mellitus; Z83.438 Family history of other disorder of lipoprotein metabolism and other lipidemia
CPT/HCPCS: 36415; 36556; 36620; 71045; 71250; 74176; 76705; 80053; 80307; 81001; 82533; 82550; 82553; 82803; 82977; 83036; 83605; 83690; 83735; 83880; 84100; 84439; 84443; 84478; 84484; 85025; 85610; 85730; 86701; 87040; 87070; 87077; 87150; 87186; 87205; 93005; 93010; 93976; 94002; 96365; 96366; 99239; 99291; 99292; J0692; J1170; J1956; J2020; J2250; J2704; J3010; J3370; J3490; J7030; P9041